=== PATIENT | female | born 1945 | race Caucasian/White ===

== ENCOUNTER → 2020-01-14 | Outpatient (CLI) | payer OTHER ==
[~2020-01-14] VITALS: Ht 160 cm; Wt 88.5 kg
[~2020-01-14] MED LIST: AMOXICILLIN875 MG PO; ASPIR 8181 M1 PO; COZAAR 25 MG TA25 M1 PO; EFFIENT10 MG PO; FARXIGA10 MG PO; HUMALOG100 UNIT/1 SUBQ; ISOSORBIDE DINI30 MG PO; LEVEMIR100 UNIT/1 SUBQ; NITROSTAT0.4 M1; OMEPRAZOLE 20 M20 M1 PO; PERCOCET 7.5-31 EAC1 PO; POTASSIUM20 PO; SLOW FE142 MG PO; TOPROL XL25 MG PO; TORSEMIDE10 MG PO
--- NOTE | 2020-01-15 18:06 | PATH ---
[facility] [place] [address] PATHOLOGY RPT PROCEDURE Name: LANI WHITTAKER Room #: REG SANDRA Marco AntonioR.#: [id number] Admission: 01/14/20 Date of : 45 Discharge: Report #: [id number] Path Case #: [id number] [facility] Accession Number: [id number] . 01 Material submitted: . PART A: stomach - GASRIC BIOPSY R/O GAVE PART B: rectum - POLYP AT RECTUM . 01 Clinical history: . low iron, hx of polyps . 02 Diagnosis: A. Gastric mucosa, gastric rule out GAVER, endoscopic biopsy: - Compatible with gastric antral vascular ectasia, see comment. - Negative for intestinal metaplasia or atrophy. - Negative for dysplasia or malignancy. - Negative for Helicobacter pylori (properly controlled immunohistochemical stain performed on block A1. . B. Polyp, at rectum, endoscopic biopsy: - Hyperplastic polyp. - Negative for dysplasia. LBQ 01/15/2020 1219 Local . 02 Comment: Examination of the gastric biopsy tissue shows foveolar hyperplasia, occasional dilated mucosal capillaries, as well as thrombi within the lamina propria vessels. Subtle fibromuscular hyperplasia is identified as well within the lamina propria. 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 Please correlate clinically. (IUV/db; 01/15/2020) . 02 Electronically signed: . Kaila Bates MD, Pathologist NPI- [id number] . 01 Gross description: . A. The specimen is received in formalin labeled "Lani Whittaker, gastric biopsy rule out GAVE" and consists of multiple fragments of ríos tissue measuring 0.8 x 0.4 x 0.2 cm which are entirely submitted in A1. . B. The specimen is received in formalin labeled "Lani Whittaker, polyp at rectum" and consists of multiple fragments of ríos tissue measuring 0.8 x 0.2 x 0.2 cm in aggregate which are entirely submitted in B1. ([facility]; 01/14/2020) JFQ/JFQ 01/14/2020 [address] [place] [address] PATHOLOGY RPT PROCEDURE Name: LANI WHITTAKER Room #: REG CLGelacio Chavez#: [id number] Admission: 01/14/20 Date of : 45 Discharge: Report #: [id number] Path Case #: [id number] . 02 Pathologist provided ICD-10: K31.9, K63.5, D64.9, Z86.010 . 02 CPT . 336487, 585307, X64507 Specimen Comment: A courtesy copy of this report has been sent to [phone] Specimen Comment: [phone] Specimen Comment: Report sent to / DR CAMPOS Performed at: [address], [place] [id number] MD Magdiel Prabhakar MD Phone: [phone] Performed at: [address] [id number] MD Kaila Bates MD Phone: [phone]
--- NOTE | 2020-01-21 08:17 | P ---
[facility] [address] [place] [address] PROCEDURE REPORT Name: LANI THAO Room #: REG SANDRA Chavez#: [id number] Admission: 01/14/20 Attend Phys: Navi Ness Discharge: Date of : 45 Report #: [id number] THIS REPORT FOR: cc: Etta Millan MD,Navi Forde MD, MD ~ CC: Navi Millan MD DATE OF SERVICE: 01/14/2020 PROCEDURE PERFORMED: Upper endoscopy with biopsies and cautery. HISTORY OF PRESENT ILLNESS: The patient is a 74-year-old female with a history of iron deficiency anemia, recent labs show hemoglobin of 8.0 on 01/02/2020. Iron level was 23, ferritin 13. MCV 75.8, platelet count 214, white blood cell 5.4. The patient does take aspirin 81 mg and Effient due to history of coronary artery disease. This has been held for the last 5 days. Plan is for EGD and colonoscopy. She denies any obvious blood in her stools, but does report some dark stools at times; however, she is also taking oral iron. Last colonoscopy was in 2012 was essentially negative other than diverticulosis. She does have a history of lap band placement for weight loss in the past. She also has history of gastroesophageal reflux disease and is on daily PPI therapy. She denies any dysphagia or nausea or vomiting. DESCRIPTION OF PROCEDURE: The risks and benefits of the procedure were explained to the patient, those risks including but not limited to bleeding, perforation and the risk of sedation. She understood these risks and gave informed consent. Sedation was given using propofol per anesthesia. Next, using a standard Olympus upper endoscope, the scope was placed in the patient's mouth and advanced under direct vision through the esophagus, stomach and into the second portion of the duodenum. The esophagus was normal throughout. The GE junction was normal. Upon entering the stomach, lap band surgical changes were noted. 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 Biopsies were obtained. There was no active bleeding. This only involved the antrum near the pylorus. The pylorus was normal and patent. The duodenal bulb and first portion were normal. The second portion of the duodenum, a single nonbleeding AVM was noted. This was cauterized with a 7-German bipolar cautery. No bleeding noted after cauterization. I then brought the scope back up into the gastric antrum as this could cause anemia, if this GAVE this could cause anemia. I then proceeded with APC cautery of the area. There was no evidence of bleeding after APC cautery was performed. The scope was then withdrawn and the procedure terminated. The patient tolerated the procedure well. [address] [address] PROCEDURE REPORT Name: LANI THAO Room #: REG SANDRA Chavez#: [id number] Admission: 01/14/20 Attend Phys: Navi Ness Discharge: Date of : 45 Report #: [id number] IMPRESSION: 1. 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 No active bleeding, but could be source of gastrointestinal bleed and anemia, treated today with APC cautery. 2. 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 No active bleeding. 3. Surgical changes of laparoscopic band were noted. 4. Otherwise, normal upper endoscopy. RECOMMENDATIONS: 1. Await biopsy results. 2. Hold aspirin and Effient for 2 more days, start Carafate for the next 10 days. 3. Continue daily PPI therapy. I would recommend bringing the patient back in 6-8 weeks and reevaluate the area and consider repeat APC cautery at that time. We will proceed with colonoscopy next day. Thank you for allowing me to participate in her care. <ELECTRONICALLY SIGNED> By: Navi Arellano MD 01/21/20 0817 1005 1206 Navi Arellano MD /nt
--- NOTE | 2020-01-21 08:17 | P ---
[facility] [place] [address] [place] [address] PROCEDURE REPORT Name: LANI THAO Room #: REG Gelacio Chavez#: [id number] Admission: 01/14/20 Attend Phys: Navi Ness Discharge: Date of : 45 Report #: [id number] THIS REPORT FOR: cc: Etta Millan MD,Navi Forde MD, MD ~ CC: Navi Millan MD DATE OF SERVICE: 01/14/2020 PROCEDURE PERFORMED: Colonoscopy with biopsies. HISTORY OF PRESENT ILLNESS: The patient is a 74-year-old female with a history of iron deficiency anemia. Upper endoscopy was just performed. 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 No active bleeding, treated with APC cautery. A single AVM was noted in the duodenum, treated with bipolar cautery. Plan is for colonoscopy. No family history of colon cancer or inflammatory bowel disease. DESCRIPTION OF PROCEDURE: The risks and benefits of the procedure were explained to the patient, those risks including but not limited to bleeding, perforation and the risk of sedation. She understood these risks and gave informed consent. Sedation was given using propofol per anesthesia. Next, a digital rectal exam was initially performed, which was normal. Next, using a standard Olympus colonoscope, the scope was placed in the patient's anus and advanced under direct vision to the cecum. The overall prep was good. The cecum and ileocecal valve were normal in appearance. The ascending, transverse and descending colon were normal. Multiple diverticuli were noted throughout the sigmoid colon, no evidence of inflammation, otherwise normal. Two small 3-4 mm rectal polyps were noted. These were removed with cold forceps. On retroflexion, small nonbleeding internal hemorrhoids were noted. The scope was then withdrawn and the procedure terminated. The patient tolerated the procedure well. IMPRESSION: 1. Sigmoid diverticulosis. 2. Small rectal polyps. 3. Small internal hemorrhoids. 4. Otherwise normal colonoscopy. No evidence of bleeding on exam today. RECOMMENDATIONS: 1. Await biopsy results. 2. As per dictation for upper endoscopy patient with possible GAVE, which could cause anemia and iron deficiency. Plan is to repeat upper endoscopy in approximately 6-[address] [address] PROCEDURE REPORT Name: LANI THAO Room #: REG [facility] Scott#: [id number] Admission: 01/14/20 Attend Phys: Navi Ness Discharge: Date of : 45 Report #: [id number] Thank you for allowing me to participate in her care. <ELECTRONICALLY SIGNED> By: Navi Arellano MD 01/21/20 0817 1008 1211 Navi Arellano MD /nt
== END | disposition home or self-care (01) ==
LOC: GI 06:52
PROVIDERS: ATTEND Specialist
DX: D50.9 Iron deficiency anemia, unspecified (principal); K62.1 Rectal polyp; K57.30 Diverticulosis of large intestine without perforation or abscess without bleeding; K64.8 Other hemorrhoids; K31.9 Disease of stomach and duodenum, unspecified; K29.70 Gastritis, unspecified, without bleeding; K31.819 Angiodysplasia of stomach and duodenum without bleeding; I11.0 Hypertensive heart disease with heart failure; I50.9 Heart failure, unspecified; F32.9 Major depressive disorder, single episode, unspecified; E11.9 Type 2 diabetes mellitus without complications; K21.9 Gastro-esophageal reflux disease without esophagitis; Z86.010 Personal history of colon polyps; Z11.59 Encounter for screening for other viral diseases; Z98.890 Other specified postprocedural states; Z79.899 Other long term (current) drug therapy; Z79.4 Long term (current) use of insulin; Z95.1 Presence of aortocoronary bypass graft; Z95.0 Presence of cardiac pacemaker; Z98.51 Tubal ligation status; Z90.710 Acquired absence of both cervix and uterus; Z98.84 Bariatric surgery status; Z87.891 Personal history of nicotine dependence
CPT/HCPCS: 62110; 62900

== ENCOUNTER → 2020-03-10 | Outpatient (CLI) | payer OTHER ==
[~2020-03-10] VITALS: Ht 160 cm; Wt 89.4 kg
[~2020-03-10] MED LIST changes: +ASPIRIN EC81 M1 PO; +CARAFATE 1 GM TA1 GM PO
[2020-03-10 09:50] LABS: HEMOGLOBIN 6.5 gm/dL (12.0-15.0); RBC 3.13 mil/uL (4.20-5.00); WBC 3.4 thou/uL (4.0-11.0)
[2020-03-10 09:51] LABS: HEMATOCRIT 21.6 % (37.0-47.0); MCH 20.7 pg (26.0-34.0); MCV 68.9 fL (80.0-100.0); RDW 20.2 % (10.5-14.5)
--- NOTE | 2020-03-12 08:47 | P ---
[facility] [place] [address] [place] [address] PROCEDURE REPORT Name: LANI THAO Room #: REG SANDRA Chavez#: [id number] Admission: 03/10/20 Attend Phys: Navi Ness Discharge: Date of : 45 Report #: [id number] THIS REPORT FOR: cc: Etta Millan MD,Navi Forde MD, MD ~ CC: Navi Millan MD DATE OF SERVICE: 03/10/2020 PROCEDURE PERFORMED: Upper endoscopy with APC cautery. HISTORY OF PRESENT ILLNESS: The patient is a 74-year-old female who underwent an EGD and colonoscopy by myself on 01/14/2020 for iron deficiency anemia. Recent labs at that time showed a hemoglobin at 8, iron level was 23, MCV 75.8. The patient is on aspirin and Effient due to a history of coronary artery disease, she has been holding this for the last 5 days. Upper endoscopy at that time showed changes consistent with gastric antral vascular ectasia, which is GAVE, and was treated with APC cautery. She also had a single nonbleeding AVM in her duodenum, which was also treated with bipolar cautery. Colonoscopy that day showed sigmoid diverticulosis, small rectal polyps, internal hemorrhoids, and no evidence of bleeding. The patient has been on PPI therapy and Carafate. She does report improvement in her symptoms. She has not had a recent hemoglobin per her knowledge. Plan is for a repeat upper endoscopy with possible cautery. DESCRIPTION OF PROCEDURE: The risks and benefits of the procedure were explained to the patient, those risks including but not limited to bleeding, perforation and the risk of sedation. She understood these risks and gave informed consent. Sedation was given using propofol per anesthesia. Next, using a standard Olympus upper endoscope, the scope was placed in the patient's mouth and advanced under direct vision through the esophagus, stomach and into the second portion of the duodenum. The esophagus was normal throughout. The GE junction was normal. Changes of previous lap band were again noted in the gastric fundus. The gastric body was essentially normal. Once again in the gastric antrum, there were changes consistent with GAVE. There were no signs of bleeding. It did appear this was less prominent than the last time. The pylorus was normal and patent. The duodenal bulb, first and second portion were all normal. The scope was then brought back up into the patient's gastric antrum and I began treating with APC cautery. All areas that were visualized were treated today. There was no evidence of bleeding after APC cautery. At this point, the scope was then withdrawn and the procedure terminated. The patient tolerated the procedure well. [address] [address] PROCEDURE REPORT Name: LANI THAO Room #: REG Gelacio Chavez#: [id number] Admission: 03/10/20 Attend Phys: Navi Ness Discharge: Date of : 45 Report #: [id number] IMPRESSION: 1. Changes again noted of GAVE status post APC cautery today as described above. 2. Lap band surgical changes. 3. Otherwise, normal upper endoscopy. RECOMMENDATIONS: 1. Continue daily PPI therapy. 2. Observe the patient post-procedure. 3. Repeat in approximately 2-3 months. 4. We will continue Carafate as this has been helpful for the patient's symptoms of reflux as well. Thank you for allowing me to participate in her care. <ELECTRONICALLY SIGNED> By: Navi Arellano MD 03/12/20 0847 0925 1041 Navi Arellano MD /nt
== END | disposition home or self-care (01) ==
LOC: GI 07:24
PROVIDERS: ATTEND Specialist
DX: K31.819 Angiodysplasia of stomach and duodenum without bleeding (principal); K21.9 Gastro-esophageal reflux disease without esophagitis; I11.0 Hypertensive heart disease with heart failure; I50.9 Heart failure, unspecified; E11.9 Type 2 diabetes mellitus without complications; F32.9 Major depressive disorder, single episode, unspecified; D64.9 Anemia, unspecified; Z11.59 Encounter for screening for other viral diseases; Z98.890 Other specified postprocedural states; Z79.4 Long term (current) use of insulin; Z79.899 Other long term (current) drug therapy; Z98.84 Bariatric surgery status; Z87.891 Personal history of nicotine dependence; Z95.1 Presence of aortocoronary bypass graft; Z95.0 Presence of cardiac pacemaker; Z90.710 Acquired absence of both cervix and uterus; Z98.51 Tubal ligation status
CPT/HCPCS: 62110; 62900

== ENCOUNTER → 2020-03-12 | Outpatient (CLI) | payer OTHER ==
[2020-03-12 10:40] VITALS: BP 107/29; BP 130/52
[2020-03-12 13:32] VITALS: BP 128/61; BP 130/52; BP 131/60
--- NOTE | 2020-03-12 19:20 | NUR ---
IN FOR BLOOD TRANSFUSION FOR HGB 6.5. PATIENT STATED FEELING VERY WEAK AND SOB WITH EXERTION. T&C DONE. TRANSFUSED 2 UNITS LPPC'S AND TOLERATED WELL WITH NO SIGNS OR SYMPTOMS OF TRANSFUSION REACTION NOTED. VITAL SIGNS STABLE. REMOVED IV AND DISMISSED IN STABLE CONDITION.
== END ==
LOC: OPONC 07:58
PROVIDERS: ATTEND Specialist
DX: D64.9 Anemia, unspecified (principal); R53.1 Weakness; R06.02 Shortness of breath
CPT/HCPCS: 91030

== ENCOUNTER → 2020-06-01 | Outpatient (CLI) | payer OTHER | LOC: LAB 09:01 | PROVIDERS: ATTEND Specialist | DX: Z20.828 Contact with and (suspected) exposure to other viral communicable diseases (principal); Z01.812 Encounter for preprocedural laboratory examination ==

== ENCOUNTER → 2020-06-22 | Outpatient (CLI) | payer OTHER | LOC: LAB 10:47 | PROVIDERS: ATTEND Specialist | DX: Z01.812 Encounter for preprocedural laboratory examination (principal); Z20.828 Contact with and (suspected) exposure to other viral communicable diseases ==

== ENCOUNTER → 2020-06-25 | Outpatient (CLI) | payer OTHER ==
--- NOTE | ~2020-06-25 | P ---
[facility] [place] [address] [place] [address] PROCEDURE REPORT Name: LANI THAO Room #: REG SANDRA Chavez#: [id number] Admission: 06/25/20 Attend Phys: Navi Ness Discharge: Date of : 45 Report #: [id number] THIS REPORT FOR: cc: Etta Millan MD,Navi Forde MD, MD ~ CC: Navi Millan MD DATE OF SERVICE: 06/25/2020 PROCEDURE PERFORMED: Upper endoscopy with APC cautery. HISTORY OF PRESENT ILLNESS: The patient is a 74-year-old female who underwent an EGD and colonoscopy by myself on 01/14/2020 for iron deficiency anemia. Hemoglobin at that time was 8, iron level was 23. The patient at that time was on aspirin and Effient. She is only on aspirin at this time for history of coronary artery disease. Upper endoscopy showed changes consistent with gastric antral vascular ectasia and was treated with APC cautery. She also had a single nonbleeding AVM in her duodenum also treated with bipolar cautery. Colonoscopy at that time showed diverticulosis, rectal polyps, internal hemorrhoids. No evidence of bleeding. The patient has been on PPI therapy and Carafate. She had a repeat upper endoscopy with APC cautery of GAVE on 03/10/2020. She has also had a lap band surgery in the past. She denies any recent nausea, vomiting, abdominal pain. No signs of melena. She does take oral iron. She has not had a recent hemoglobin apparently. Plan is for repeat upper endoscopy. DESCRIPTION OF PROCEDURE: The risks and benefits of the procedure were explained to the patient, those risks including but not limited to bleeding, perforation and the risk of sedation. She understood these risks and gave informed consent. Sedation was given using propofol per anesthesia. Next, using a standard Olympus upper endoscope, the scope was placed in the patient's mouth and advanced under direct vision through the esophagus, stomach and into the second portion of the duodenum. The larynx was normal in appearance. The esophagus was normal. GE junction was normal. On retroflexion in the stomach, the previous lap band was again noted. The gastric fundus and body were essentially normal. In the gastric antrum once again changes of GAVE were noted. There was one small area of old blood noted. The pylorus was otherwise normal and patent. The duodenal bulb and first portion were normal. In the second portion of the duodenum was a diverticulum, but otherwise normal. The scope was then brought back up into the patient's stomach and I proceeded with treating all areas of GAVE with APC cautery. There was no evidence of bleeding after treatment. At this point, the scope was then withdrawn and the procedure terminated. The patient tolerated the procedure well. [address] [address] PROCEDURE REPORT Name: LANI THAO [facility] #: REG [facility] [id number] Admission: 06/25/20 Attend Phys: Navi Ness Discharge: Date of : 45 Report #: [id number] IMPRESSION: 1. Changes of GAVE again noted in the gastric antrum. No significant bleeding, but a small area of old blood was noted in this area. 2. Lap band changes again noted. 3. Duodenal diverticulum. RECOMMENDATIONS: 1. Continue daily PPI therapy and Carafate. 2. Observe the patient post-procedure. 3. Would repeat procedure in approximately 2-3 months. 4. Consider repeat hemoglobin to compare and monitor her anemia. Thank you for allowing me to participate in her care. By: 1017 0217 Navi Arellano MD /nt
== END | disposition home or self-care (01) ==
LOC: GI 06-04 10:55
PROVIDERS: ATTEND Specialist
DX: K31.819 Angiodysplasia of stomach and duodenum without bleeding (principal); K57.10 Diverticulosis of small intestine without perforation or abscess without bleeding; I25.10 Atherosclerotic heart disease of native coronary artery without angina pectoris; I11.0 Hypertensive heart disease with heart failure; I50.9 Heart failure, unspecified; F32.9 Major depressive disorder, single episode, unspecified; Z98.84 Bariatric surgery status; Z98.890 Other specified postprocedural states; Z79.899 Other long term (current) drug therapy; Z79.82 Long term (current) use of aspirin; Z95.1 Presence of aortocoronary bypass graft; Z90.710 Acquired absence of both cervix and uterus; Z98.51 Tubal ligation status
CPT/HCPCS: 62110; 62900